=== PATIENT | female | born 1960 | race Caucasian/White ===

== ENCOUNTER 2017-10-30 11:19 | Inpatient (IN) | payer OTHER ==
[~2017-10-30 11:19] MED LIST: CEFAZOLIN 1 GM INJ; FENTAnyl 50 MCG/ML VIAL; MIDAZOLAM 1 MG/ML 2 ML INJ; PROPOFOL 20 ML; ROCURONIUM 50 MG INJ; ROPIVACAINE 0.5 % 30 ML VIAL; morphine SULFATE/PF (10 MG/10 ML) INJ
[2017-10-30] MEDS ORDERED: BACITRACIN/POLYMYXIN 28.35 GM OINT TOP (12:16)
[2017-10-30] MEDS ORDERED: POLYMYXIN/BACITRACIN 1L IRRIG (12:16)
[2017-10-30] MEDS: TRANEXAMIC ACID 1,000 MG/10 ML VIAL IVPB (13:30)
[2017-10-30] MEDS ORDERED: PHENYLephrine 10 MG INJ (13:39)
[2017-10-30] MEDS ORDERED: PHENYLephrine (100 MCG/ML) 5ML SYG ×2 (13:39→14:10)
[2017-10-30] MEDS: POLYMYXIN/BACITRACIN 1L IRRIG IRR (13:59)
[2017-10-30] MEDS: NEOMYC/POLYMYX/BACIT 30 GM OINT TOP (14:00)
[2017-10-30] MEDS ORDERED: KETOROLAC 30 MG INJ (14:03)
[2017-10-30] MEDS ORDERED: METOCLOPRAMIDE 10 MG INJ (14:03)
[2017-10-30] MEDS ORDERED: ACETAMINOPHEN 1000MG/100ML IV 100 ML (14:03)
[2017-10-30] MEDS ORDERED: DEXAMETHASONE 4 MG/ML 1 ML INJ (14:03)
[2017-10-30] MEDS ORDERED: ONDANSETRON 4 MG INJ (14:03)
[2017-10-30] MEDS ORDERED: SUGAMMADEX SODIUM 200 MG/2 ML VIAL IV (14:56)
[2017-10-30] MEDS ORDERED: HYDROCODONE/APAP (5/325) TAB PO (15:00)
[2017-10-30] MEDS ORDERED: NALOXONE (0.4 MG/ML) INJ IV (15:00)
[2017-10-30] MEDS ORDERED: HYDROmorphONE 0.5 MG/0.5 ML SYG IV ×2 (15:00)
[2017-10-30] MEDS ORDERED: hydrALAzine 20 MG INJ IV (15:00)
[2017-10-30] MEDS ORDERED: KETOROLAC 30 MG INJ IV (15:00)
[2017-10-30] MEDS ORDERED: FENTAnyl 50 MCG/ML VIAL IV ×3 (15:00)
[2017-10-30] MEDS ORDERED: morphine 2 MG INJ IV ×2 (15:00)
[2017-10-30] MEDS ORDERED: METOCLOPRAMIDE 10 MG INJ IV (15:00)
[2017-10-30] MEDS ORDERED: ONDANSETRON 4 MG INJ IV ×2 (15:00)
[2017-10-30] MEDS ORDERED: ALBUMIN HUMAN 5% 250 ML IV (15:00)
[2017-10-30] MEDS ORDERED: HYDROmorphONE (0.2 MG/ML) 10ML SYG IV ×3 (15:00)
[2017-10-30] MEDS ORDERED: EPHEDrine SULFATE 50 MG/5 ML SYG IV (15:00)
[2017-10-30] MEDS ORDERED: MEPERIDINE 25 MG INJ IV (15:00)
[2017-10-30] MEDS ORDERED: OXYCODONE/ACETAMINOPHEN (5/325) TAB PO ×2 (15:00)
[2017-10-30] MEDS ORDERED: NALBUPHINE HCL (10 MG/1 ML) INJ IV (15:00)
[2017-10-30] MEDS ORDERED: ACETAMINOPHEN 500 MG TAB PO (15:00)
[2017-10-30] MEDS ORDERED: LABETALOL HCL 20MG INJ IV (15:00)
[2017-10-30] MEDS ORDERED: DIPHENHYDRAMINE 50 MG INJ IV (15:00)
[2017-10-30] MEDS: HETASTARCH 6% NACL 500 ML BAG IV* (15:17)
[2017-10-30 16:09] LABS: HEMATOCRIT 33.2 % (37.0-47.0)
[2017-10-30 16:25] LABS: ANION GAP 10 (8-16); CARBON DIOXIDE 25 mmol/L (21-31); CHLORIDE 111 mmol/L (97-110); GLUCOSE 84 mg/dl (70-220)
[2017-10-30] MEDS: CEFAZOLIN 1 GM/50 ML (PMX) 50 ML IVPB (16:34)
[2017-10-30] MEDS: ASPIRIN (EC) 325 MG TAB PO (16:34)
[2017-10-30 16:35] LABS: BLOOD UREA NITROGEN 15 mg/dl (7-20); CREATININE 0.76 mg/dl (0.44-1.00); POTASSIUM 4.6 mmol/L (3.5-5.1); SODIUM 141 mmol/L (135-144)
[2017-10-30 16:36] LABS: CALCIUM 8.1 mg/dl (8.4-10.2)
[2017-10-30] MEDS ORDERED: HETASTARCH 6% NACL 500 ML (17:22)
[2017-10-31] MEDS: CEFAZOLIN 1 GM/50 ML (PMX) 50 ML IVPB ×2 (00:05→08:16)
[2017-10-31 05:08] LABS: ADD MAN DIFF? NO
[2017-10-31 05:12] LABS: HEMATOCRIT 32.9 % (37.0-47.0); HEMOGLOBIN 10.6 g/dl (12.0-16.0); LYMPHOCYTES # 0.7 10^3/ul (0.8-2.9); LYMPHOCYTES % 7.6 % (15.0-51.0); MEAN CORPUSCULAR HEMOGLOBIN 28.8 pg (29.0-33.0); MEAN CORPUSCULAR HGB CONC 32.2 g/dl (32.0-37.0); MEAN CORPUSCULAR VOLUME 89.4 fl (82.0-101.0); MEAN PLATELET VOLUME 9.4 fl (7.4-10.4); MONOCYTE # 0.7 10^3/ul (0.3-0.9); MONOCYTES % 7.6 % (0.0-11.0); NEUTROPHIL # 7.7 10^3/ul (1.6-7.5); NEUTROPHILS % 84.5 % (39.0-77.0); PLATELET COUNT 308 10^3/UL (140-415); RED BLOOD COUNT 3.68 10^6/ul (4.20-5.40); RED CELL DISTRIBUTION WIDTH 12.3 % (11.5-14.5)
[2017-10-31 05:12] LABS: WHITE BLOOD COUNT 9.1 10^3/ul (4.8-10.8)
[2017-10-31 05:40] LABS: ALANINE AMINOTRANSFERASE 32 IU/L (13-69); ALBUMIN 3.3 g/dl (3.3-4.9); ALBUMIN/GLOBULIN RATIO 1.17; ALKALINE PHOSPHATASE 51 IU/L (42-121); ANION GAP 9 (8-16); ASPARTATE AMINO TRANSFERASE 26 IU/L (15-46); BILIRUBIN,INDIRECT 0.3 mg/dl (0-1.1); BILIRUBIN,TOTAL 0.3 mg/dl (0.2-1.3); BLOOD UREA NITROGEN 13 mg/dl (7-20); CALCIUM 8.3 mg/dl (8.4-10.2); CARBON DIOXIDE 26 mmol/L (21-31); CHLORIDE 107 mmol/L (97-110); CREATININE 0.58 mg/dl (0.44-1.00); GLUCOSE 122 mg/dl (70-220); POTASSIUM 4.3 mmol/L (3.5-5.1); SODIUM 138 mmol/L (135-144); TOTAL PROTEIN 6.1 g/dl (6.1-8.1)
[2017-10-31] MEDS: DIPHENHYDRAMINE 50 MG INJ IV (08:16)
[2017-10-31] MEDS: ASPIRIN (EC) 325 MG TAB PO ×2 (08:16→20:53)
[2017-10-31] MEDS ORDERED: DIPHENHYDRAMINE 50 MG CAP PO (09:30)
[2017-10-31] MEDS ORDERED: ONDANSETRON 4 MG INJ IV (09:30)
[2017-10-31] MEDS: INFLUENZA VIRUS VACCINE 0.5 ML SYG IM* (15:19)
[2017-10-31] MEDS ORDERED: DOCUSATE SODIUM 100 MG CAP PO (16:30)
[2017-10-31] MEDS: HYDROCODONE/APAP (5/325) TAB PO ×2 (19:10→23:26)
[2017-11-01] MEDS: morphine 2 MG INJ IV ×4 (00:25→12:04)
[2017-11-01 05:52] LABS: ADD MAN DIFF? NO
[2017-11-01 05:58] LABS: BASOPHILS % 0.3 % (0.0-2.0); EOSINOPHILS % 0.2 % (0.0-7.0); HEMATOCRIT 31.5 % (37.0-47.0); HEMOGLOBIN 10.4 g/dl (12.0-16.0); LYMPHOCYTES # 2.2 10^3/ul (0.8-2.9); LYMPHOCYTES % 21.6 % (15.0-51.0); MEAN CORPUSCULAR HEMOGLOBIN 29.5 pg (29.0-33.0); MEAN CORPUSCULAR VOLUME 89.2 fl (82.0-101.0); MEAN PLATELET VOLUME 10.2 fl (7.4-10.4); NEUTROPHIL # 6.8 10^3/ul (1.6-7.5); NEUTROPHILS % 67.6 % (39.0-77.0); PLATELET COUNT 303 10^3/UL (140-415); RED BLOOD COUNT 3.53 10^6/ul (4.20-5.40); RED CELL DISTRIBUTION WIDTH 12.5 % (11.5-14.5)
[2017-11-01 06:14] LABS: ANION GAP 14 (8-16); BLOOD UREA NITROGEN 13 mg/dl (7-20); CALCIUM 8.4 mg/dl (8.4-10.2); CARBON DIOXIDE 23 mmol/L (21-31); CHLORIDE 102 mmol/L (97-110); CREATININE 0.62 mg/dl (0.44-1.00); GLUCOSE 127 mg/dl (70-220); POTASSIUM 3.9 mmol/L (3.5-5.1); SODIUM 135 mmol/L (135-144)
[2017-11-01] MEDS: ASPIRIN (EC) 325 MG TAB PO ×2 (08:20→20:55)
[2017-11-01] MEDS: KETOROLAC 30 MG INJ IV ×2 (08:21→16:26)
[2017-11-01] MEDS: HYDROCODONE/APAP (5/325) TAB PO (15:36)
[2017-11-01] MEDS: HYDROCODONE/APAP (10/325) TAB PO (23:06)
[2017-11-02] MEDS: HYDROCODONE/APAP (10/325) TAB PO ×2 (05:20→10:38)
[2017-11-02 06:14] LABS: ADD MAN DIFF? NO
[2017-11-02 06:19] LABS: WHITE BLOOD COUNT 8.4 10^3/ul (4.8-10.8)
[2017-11-02 06:19] LABS: BASOPHIL # 0.1 10^3/ul (0.0-0.1); BASOPHILS % 0.6 % (0.0-2.0); EOSINOPHILS # 0.5 10^3/ul (0.0-0.5); EOSINOPHILS % 5.5 % (0.0-7.0); HEMATOCRIT 31.1 % (37.0-47.0); HEMOGLOBIN 10.1 g/dl (12.0-16.0); LYMPHOCYTES # 2.5 10^3/ul (0.8-2.9); LYMPHOCYTES % 30.2 % (15.0-51.0); MEAN CORPUSCULAR HEMOGLOBIN 29.1 pg (29.0-33.0); MEAN CORPUSCULAR HGB CONC 32.5 g/dl (32.0-37.0); MEAN CORPUSCULAR VOLUME 89.6 fl (82.0-101.0); MEAN PLATELET VOLUME 10.3 fl (7.4-10.4); MONOCYTE # 1.1 10^3/ul (0.3-0.9); MONOCYTES % 12.5 % (0.0-11.0); NEUTROPHIL # 4.3 10^3/ul (1.6-7.5); PLATELET COUNT 289 10^3/UL (140-415); RED BLOOD COUNT 3.47 10^6/ul (4.20-5.40); RED CELL DISTRIBUTION WIDTH 12.6 % (11.5-14.5)
[2017-11-02 06:38] LABS: ANION GAP 12 (8-16); BLOOD UREA NITROGEN 9 mg/dl (7-20); CALCIUM 8.7 mg/dl (8.4-10.2); CARBON DIOXIDE 27 mmol/L (21-31); CHLORIDE 105 mmol/L (97-110); CREATININE 0.64 mg/dl (0.44-1.00); GLUCOSE 96 mg/dl (70-220); POTASSIUM 3.8 mmol/L (3.5-5.1); SODIUM 140 mmol/L (135-144)
[2017-11-02] MEDS: ASPIRIN (EC) 325 MG TAB PO (10:25)
== END 2017-11-02 15:55 | disposition home health service (06) | DRG 470 ==
LOC: REC 11:19 → MS1 10-31 14:59
PROC: 0SRC069 Replacement of Right Knee Joint with Oxidized Zirconium on Polyethylene Synthetic Substitute, Cemented, Open Approach (ICD-10-PCS; principal; 2017-10-30 13:00)
DX: M17.11 Unilateral primary osteoarthritis, right knee (principal); G62.9 Polyneuropathy, unspecified; D64.9 Anemia, unspecified
CPT/HCPCS: 71045; 80048; 80053; 85014; 85018; 85025; 87086; 88304; 88311; 90686; 93005; 97110; 97116; 97167; 97530

== ENCOUNTER 2019-06-02 06:22 | Day surgery (SDC) | payer OTHER ==
[2019-06-02] MEDS ORDERED: PROPOFOL 20 ML ×2 (07:26→08:17)
[2019-06-02] MEDS ORDERED: FENTAnyl 50 MCG/ML VIAL (07:27)
== END 2019-06-02 13:39 | disposition home or self-care (01) ==
LOC: GIL 06:22
DX: Z12.11 Encounter for screening for malignant neoplasm of colon (principal); K64.4 Residual hemorrhoidal skin tags; B96.81 Helicobacter pylori [H. pylori] as the cause of diseases classified elsewhere; K29.50 Unspecified chronic gastritis without bleeding
CPT/HCPCS: 43239; 88305; 88312